=== PATIENT | male | born 1965 | race Caucasian/White ===

== ENCOUNTER 2016-10-23 22:08 | Emergency (ER) | payer SELFPAY ==
--- NOTE | 2016-10-24 03:01 | ED ORDER SUMMARY ---
..... Patient: SUSANA CLAIRE OrderSheet [facility] VisitID: [id number] [place] [address] 51y, M Registration Date/Time: 10/23/2016 ORDER SHEET Weight: 90.7 kg (stated) Allergies: No Known Drug Allergy GENERAL ORDERS: Chest 2V Urgent (23:28 10/23/2016 Robyn R.N. verbal order read back to Malcom LUCIANO) (Ack 23:29 Flakito ER Sheet Metal Superintendent) (1:36 JRomanelli R.N.) EKG - ER Stat (23:40 10/23/2016 Robyn R.N. verbal order read back to Malcom LUCIANO) (Ack 23:53 RKaruga) (0:16 Flakito ER Sheet Metal Superintendent) Shoulder 2V or more Left Urgent (00:22 10/24/2016 Malcom LUCIANO) (Ack 0:26 Flakito ER Sheet Metal Superintendent) (1:36 omanelli R.N.) Ribs Unilat Left Urgent (00:23 10/24/2016 Malcom LUCIANO) (Ack 0:26 Flakito ER Sheet Metal Superintendent) (1:36 omanelli R.N.) MEDICATION ORDERS: Tdap IM 0.5 mL (NOW, per protocol) (23:29 10/23/2016 Robyn R.N. verbal order read back to Malcom LUCIANO) (Ack 0:52 RMarsden R.N.) (1:16 RMarsden R.N.) IV FLUIDS: Dilaudid IV 0.5 mg (HIGH ALERT MEDICATION, NOW) (00:23 10/24/2016 Malcom LUCIANO) (Ack 0:52 RMarsden R.N.) (1:15 RMarsden R.N.) Zofran IV 4 mg (NOW) (00:23 10/24/2016 Malcom LUCIANO) (Ack 0:52 RMarsden R.N.) (1:15 RMarsden R.N.) Dilaudid IV 0.5 mg (HIGH ALERT MEDICATION, NOW) (02:57 10/24/2016 Malcom LUCIANO) (Ack 3:14 RMarsden R.N.) (3:24 RMarsden R.N.) ORDER SHEET NOTES: [Electronically signed by Manisha Dumont R.N. (03:52 10/24/2016)] [Electronically signed by Marino Madison MD (10:29 11/12/2016)] [Electronically locked/signed by Manisha Dumont R.N. (03:52 10/24/2016)]
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
--- NOTE | 2016-10-24 03:01 | ED ORDER SUMMARY ---
..... Patient: SUSANA CLAIRE OrderSheet [facility] VisitID: [id number] [place] [address] 51y, M Registration Date/Time: 10/23/2016 ORDER SHEET Weight: 90.7 kg (stated) Allergies: No Known Drug Allergy GENERAL ORDERS: Chest 2V Urgent (23:28 10/23/2016 Robyn R.N. verbal order read back to Malcom LUCIANO) (Ack 23:29 Flakito ER Caustic Room Attendant) (1:36 JRomanelli R.N.) EKG - ER Stat (23:40 10/23/2016 Robyn R.N. verbal order read back to Malcom LUCIANO) (Ack 23:53 RKaruga) (0:16 Flakito ER Caustic Room Attendant) Shoulder 2V or more Left Urgent (00:22 10/24/2016 Malcom LUCIANO) (Ack 0:26 Flakito ER Caustic Room Attendant) (1:36 omanelli R.N.) Ribs Unilat Left Urgent (00:23 10/24/2016 Malcom LUCIANO) (Ack 0:26 Flakito ER Caustic Room Attendant) (1:36 omanelli R.N.) MEDICATION ORDERS: Tdap IM 0.5 mL (NOW, per protocol) (23:29 10/23/2016 Robyn R.N. verbal order read back to Malcom LUCIANO) (Ack 0:52 RMarsden R.N.) (1:16 RMarsden R.N.) IV FLUIDS: Dilaudid IV 0.5 mg (HIGH ALERT MEDICATION, NOW) (00:23 10/24/2016 Malcom LUCIANO) (Ack 0:52 RMarsden R.N.) (1:15 RMarsden R.N.) Zofran IV 4 mg (NOW) (00:23 10/24/2016 Malcom LUCIANO) (Ack 0:52 RMarsden R.N.) (1:15 RMarsden R.N.) Dilaudid IV 0.5 mg (HIGH ALERT MEDICATION, NOW) (02:57 10/24/2016 Malcom LUCIANO) (Ack 3:14 RMarsden R.N.) (3:24 RMarsden R.N.) ORDER SHEET NOTES: [Electronically signed by Manisha Dumont R.N. (03:52 10/24/2016)] [Electronically signed by Marino Madison MD (10:29 11/12/2016)] [Electronically locked/signed by Manisha Dumont R.N. (03:52 10/24/2016)]
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
--- NOTE | 2016-10-24 08:02 | DIAGNOSTIC IMAGING REPORT ---
PROCEDURE: XR CHEST 2 VIEW INDICATION: CHEST PAIN TECHNIQUE: Two views. COMPARISON: None. FINDINGS: Cardiomediastinal contour and central vessels are normal. Asymmetric left hemidiaphragm elevation. Small to moderate size left pneumothorax. No visible pleural effusion. Minor left lateral lung base atelectatic change. The right lung is clear. There is a remote non-united left mid clavicle fracture with fixation hardware in place. There is acute fracture of the left scapula. Deformity of the left lateral chest wall suggestive of rib fractures. IMPRESSION: 1. Small to moderate size left pneumothorax. 2. Left scapula and left lateral rib fractures. 3. Left lateral lung base atelectasis. 4. Findings discussed with Dr. Madison in the emergency room.
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
--- NOTE | 2016-10-24 08:04 | DIAGNOSTIC IMAGING REPORT ---
PROCEDURE: XR RIBS UNILATERAL - LEFT INDICATION: TECHNIQUE: Two views of the left ribs with single PA view chest. COMPARISON: None. FINDINGS: LEFT RIBS: Deformity of the anterolateral 3rd rib, minimally displaced fourth rib fracture, mildly displaced fifth rib fracture. Displaced sixth and seventh rib fractures with some callus. Acute eighth rib fracture. Questionable ninth rib fracture. CHEST: Left hemidiaphragm elevation. Normal cardiomediastinal contour. Small to moderate left pneumothorax. Remote, fixed left clavicle fracture and acute left scapula fracture. IMPRESSION: 1. Multiple acute left rib fractures. 2. Multiple chronic left rib fractures, healed. 3. Small to moderate left pneumothorax. 4. Discussed with Dr. Madison in the emergency room.
--- NOTE | 2016-11-12 10:29 | ED MAR SUMMARY ---
..... Medication Administration Record [facility] [address] [place] [address] Patient: SUSANA CLAIRE Visit ID: [id number] 51y, M Weight: 90.7 kg Height/Length: 72 in BMI: 27.1 ALLERGIES: No Known Drug Allergy Given 01:07 10/24/2016 Manisha Dumont R.N. Medication Administered: ZOFRAN [IVP] (ONDANSETRON HCL), Dose: 4 mg IVP over 2 minute(s), Site: #1 right wrist. Medication Ordered: Zofran IV 4 mg (NOW). Given 01:10 10/24/2016 Manisha Dumont R.N. Medication Administered: DILAUDID [IVP] (HYDROMORPHONE HCL PF), Dose: 0.5 mg IVP over 1 minute(s), Site: #1 right wrist. Medication Ordered: Dilaudid IV 0.5 mg (HIGH ALERT MEDICATION, NOW). Given 01:16 10/24/2016 Manisha Dumont R.N. Medication Administered: TDAP [IM], Dose: 0.5 mL IM. Medication Ordered: Tdap IM 0.5 mL (NOW, per protocol). Given 03:24 10/24/2016 Manisha Dumont R.N. Medication Administered: DILAUDID [IVP] (HYDROMORPHONE HCL PF), Dose: 0.5 mg IVP over 2 minute(s), Site: #1 right wrist. Medication Ordered: Dilaudid IV 0.5 mg (HIGH ALERT MEDICATION, NOW).
--- NOTE | 2016-11-12 10:29 | ED MED RECONCILIATION SUMMARY ---
Patient: SUSANA CLAIRE Medication Reconciliation Report [facility] VisitID: [id number] [place] [address] 51y, M Registration Date/Time: 10/23/2016 Weight: 90.7 kg Height/Length: 72 in. BMI: 27.1 ALLERGIES: No Known Drug Allergy The patient's Home Medications are listed below: CONTINUE TAKING THE FOLLOWING MEDICATIONS: BusPIRone HCl Oral Citalopram Hydrobromide Oral The source(s) of the original Home Medication information: Not obtained. The following Medications were given to the patient in the Emergency Department: Zofran [IVP] IVP 4 mg, administered: 10/24/2016 1:07:00 AM Dilaudid [IVP] IVP 0.5 mg, administered: 10/24/2016 1:10:00 AM TDAP [IM] IM 0.5 mL, administered: 10/24/2016 1:16:00 AM Dilaudid [IVP] IVP 0.5 mg, administered: 10/24/2016 3:24:00 AM The following Medications were prescribed to the patient: Hydrocodone/APAP 5mg/325mg: take 1 to 2 orally every 6 hours as needed for pain. Dispense fifteen (15). No refills. -- Marino Madison MD
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
--- NOTE | 2016-11-12 10:29 | ED MAR SUMMARY ---
..... Medication Administration Record [facility] [address] [place] [address] Patient: SUSANA CLAIRE Visit ID: [id number] 51y, M Weight: 90.7 kg Height/Length: 72 in BMI: 27.1 ALLERGIES: No Known Drug Allergy Given 01:07 10/24/2016 Manisha Dumont R.N. Medication Administered: ZOFRAN [IVP] (ONDANSETRON HCL), Dose: 4 mg IVP over 2 minute(s), Site: #1 right wrist. Medication Ordered: Zofran IV 4 mg (NOW). Given 01:10 10/24/2016 Manisha Dumont R.N. Medication Administered: DILAUDID [IVP] (HYDROMORPHONE HCL PF), Dose: 0.5 mg IVP over 1 minute(s), Site: #1 right wrist. Medication Ordered: Dilaudid IV 0.5 mg (HIGH ALERT MEDICATION, NOW). Given 01:16 10/24/2016 Manisha Dumont R.N. Medication Administered: TDAP [IM], Dose: 0.5 mL IM. Medication Ordered: Tdap IM 0.5 mL (NOW, per protocol). Given 03:24 10/24/2016 Manisha Dumont R.N. Medication Administered: DILAUDID [IVP] (HYDROMORPHONE HCL PF), Dose: 0.5 mg IVP over 2 minute(s), Site: #1 right wrist. Medication Ordered: Dilaudid IV 0.5 mg (HIGH ALERT MEDICATION, NOW).
--- NOTE | 2016-11-12 10:29 | ED MED RECONCILIATION SUMMARY ---
Patient: SUSANA CLAIRE Medication Reconciliation Report [facility] VisitID: [id number] [place] [address] 51y, M Registration Date/Time: 10/23/2016 Weight: 90.7 kg Height/Length: 72 in. BMI: 27.1 ALLERGIES: No Known Drug Allergy The patient's Home Medications are listed below: CONTINUE TAKING THE FOLLOWING MEDICATIONS: BusPIRone HCl Oral Citalopram Hydrobromide Oral The source(s) of the original Home Medication information: Not obtained. The following Medications were given to the patient in the Emergency Department: Zofran [IVP] IVP 4 mg, administered: 10/24/2016 1:07:00 AM Dilaudid [IVP] IVP 0.5 mg, administered: 10/24/2016 1:10:00 AM TDAP [IM] IM 0.5 mL, administered: 10/24/2016 1:16:00 AM Dilaudid [IVP] IVP 0.5 mg, administered: 10/24/2016 3:24:00 AM The following Medications were prescribed to the patient: Hydrocodone/APAP 5mg/325mg: take 1 to 2 orally every 6 hours as needed for pain. Dispense fifteen (15). No refills. -- Marino Madison MD
== END 2016-10-24 03:38 | disposition home or self-care (01) ==
LOC: ED SRH 22:08
DX: S22.42XA Multiple fractures of ribs, left side, initial encounter for closed fracture (principal); S27.0XXA Traumatic pneumothorax, initial encounter; S42.102A Fracture of unspecified part of scapula, left shoulder, initial encounter for closed fracture; S43.422A Sprain of left rotator cuff capsule, initial encounter; S20.212A Contusion of left front wall of thorax, initial encounter; S30.1XXA Contusion of abdominal wall, initial encounter; S80.11XA Contusion of right lower leg, initial encounter; S40.012A Contusion of left shoulder, initial encounter; S90.02XA Contusion of left ankle, initial encounter; V28.0XXA Motorcycle driver injured in noncollision transport accident in nontraffic accident, initial encounter; Y93.I9 Activity, other involving external motion; Z23 Encounter for immunization

== ENCOUNTER 2016-10-24 10:27 | Emergency (ER) | payer SELFPAY ==
--- NOTE | 2016-10-24 11:56 | DIAGNOSTIC IMAGING REPORT ---
PROCEDURE: XR CHEST 2 VIEW INDICATION: SHORTNESS OF BREATH TECHNIQUE: Two views. COMPARISON: 10/23/2016 FINDINGS: Stable cardiomediastinal contour and central vessels. There has been further elevation of the left hemidiaphragm and development of retrocardiac atelectasis. Moderate size pneumothorax is fairly stable. Multiple acute and chronic left-sided rib fractures. Acute, comminuted left scapular fracture. Non-united left clavicle fracture with fixation plate. IMPRESSION: 1. Decreased volume of the left hemithorax secondary to progression of left base atelectasis. 2. Moderate left pneumothorax is stable. 3. Acute left scapula fracture.
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
--- NOTE | 2016-10-24 14:32 | ED ORDER SUMMARY ---
..... Patient: SUSANA CLAIRE OrderSheet [facility] VisitID: [id number] [address] [place] [address] 51y, M Registration Date/Time: 10/24/2016 ORDER SHEET Weight: 90.7 kg Allergies: No Known Drug Allergy GENERAL ORDERS: CT Upp Ext wo Cont Left (Shoulder) Urgent (10:41 10/24/2016 Preethi LUCIANO) (Ack 10:43 PWeiler ER Tech1) (11:35 PWeiler ER Tech1) Chest 2V Urgent (10:42 10/24/2016 Preethi LUCIANO) (Ack 10:43 PWeiler ER Tech1) (11:35 PWeiler ER Tech1) CBC w Diff Urgent (10:42 10/24/2016 Preethi LUCIANO) (Ack 10:43 PWeiler ER Tech1) (11:10 JBoardley R.N.) CMP Urgent (10:42 10/24/2016 Preethi LUCIANO) (Ack 10:43 PWeiler ER Tech1) (11:10 JBoardley R.N.) Clinical Quality Assurance Specialist (Continuous) (10:43 10/24/2016 rPeethi LUCIANO) (10:45 JBoardley R.N.) Oxygen (100%) (Non-Rebreather Mask) (10:43 10/24/2016 Preethi LUCIANO) (10:45 JBoardley R.N.) Pulse oximeter (10:44 10/24/2016 Preethi LUCIANO) (10:45 JBoardley R.N.) Shoulder Immobilizer (13:27 10/24/2016 Preethi LUCIANO) (13:36 JBoardley R.N.) MEDICATION ORDERS: IV FLUIDS: Dilaudid IV 1 mg (HIGH ALERT MEDICATION, NOW) (10:39 10/24/2016 Preethi LUCIANO) (Ack 10:45 JBoardley R.N.) (11:11 JBoardley R.N.) Toradol IV 30 mg (NOW) (10:39 10/24/2016 Preethi LUCIANO) (Ack 10:45 JBoardley R.N.) (11:11 JBoardley R.N.) IV Saline Lock (10:42 10/24/2016 Preethi LUCIANO) (Ack 10:45 JBoardley R.N.) (11:10 JBoardley R.N.) Zofran IV 4 mg (NOW) (11:11 10/24/2016 JBoardley R.N. per protocol) (11:11 JBoardley R.N.) Dilaudid IV 1 mg (HIGH ALERT MEDICATION, NOW) (12:03 10/24/2016 JBoardley R.N. verbal order read back to Preethi LUCIANO) (12:04 JBoardley R.N.) Dilaudid IV 1 mg (HIGH ALERT MEDICATION, NOW) (14:01 10/24/2016 Preethi LUCIANO) (Ack 14:02 Tarsha R.N.) (Ack 14:06 JBoarsukumar R.N.) (14:14 JBoardley R.N.) ORDER SHEET NOTES: [Electronically signed by Guido Sinha R.N. (17:12 10/24/2016)] [Electronically signed by Kayla Kim MD (09:58 10/30/2016)] [Electronically locked/signed by Guido Sinha R.N. (17:12 10/24/2016)]
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
--- NOTE | 2016-10-24 14:32 | ED ORDER SUMMARY ---
..... Patient: SUSANA CLAIRE OrderSheet [facility] VisitID: [id number] [address] [place] [address] 51y, M Registration Date/Time: 10/24/2016 ORDER SHEET Weight: 90.7 kg Allergies: No Known Drug Allergy GENERAL ORDERS: CT Upp Ext wo Cont Left (Shoulder) Urgent (10:41 10/24/2016 Preethi LUCIANO) (Ack 10:43 PWeiler ER Tech1) (11:35 PWeiler ER Tech1) Chest 2V Urgent (10:42 10/24/2016 Preethi LUCIANO) (Ack 10:43 PWeiler ER Tech1) (11:35 PWeiler ER Tech1) CBC w Diff Urgent (10:42 10/24/2016 Preethi LUCIANO) (Ack 10:43 PWeiler ER Tech1) (11:10 JBoardley R.N.) CMP Urgent (10:42 10/24/2016 Preethi LUCIANO) (Ack 10:43 PWeiler ER Tech1) (11:10 JBoardley R.N.) Checker (Continuous) (10:43 10/24/2016 Preethi LUCIANO) (10:45 JBoardley R.N.) Oxygen (100%) (Non-Rebreather Mask) (10:43 10/24/2016 Preethi LUCIANO) (10:45 JBoardley R.N.) Pulse oximeter (10:44 10/24/2016 Preethi LUCIANO) (10:45 JBoardley R.N.) Shoulder Immobilizer (13:27 10/24/2016 Preethi LUCIANO) (13:36 JBoardley R.N.) MEDICATION ORDERS: IV FLUIDS: Dilaudid IV 1 mg (HIGH ALERT MEDICATION, NOW) (10:39 10/24/2016 Preethi LUCIANO) (Ack 10:45 JBoardley R.N.) (11:11 JBoardley R.N.) Toradol IV 30 mg (NOW) (10:39 10/24/2016 Preethi LUCIANO) (Ack 10:45 JBoardley R.N.) (11:11 JBoardley R.N.) IV Saline Lock (10:42 10/24/2016 Preethi LUCIANO) (Ack 10:45 JBoardley R.N.) (11:10 JBoardley R.N.) Zofran IV 4 mg (NOW) (11:11 10/24/2016 JBoardley R.N. per protocol) (11:11 JBoardley R.N.) Dilaudid IV 1 mg (HIGH ALERT MEDICATION, NOW) (12:03 10/24/2016 JBoardley R.N. verbal order read back to Preethi LUCIANO) (12:04 JBoardley R.N.) Dilaudid IV 1 mg (HIGH ALERT MEDICATION, NOW) (14:01 10/24/2016 Preethi LUCIANO) (Ack 14:02 Tarsha R.N.) (Ack 14:06 JBoarsukumar R.N.) (14:14 JBoardley R.N.) ORDER SHEET NOTES: [Electronically signed by Guido Sinha R.N. (17:12 10/24/2016)] [Electronically signed by Kayla Kim MD (09:58 10/30/2016)] [Electronically locked/signed by Guido Sinha R.N. (17:12 10/24/2016)]
--- NOTE | 2016-10-30 09:58 | ED MED RECONCILIATION SUMMARY ---
Patient: SUSANA CLAIRE Medication Reconciliation Report [facility] VisitID: [id number] [address] [place] [address] 51y, M Registration Date/Time: 10/24/2016 Weight: 90.7 kg Height/Length: 72 in. BMI: 27.1 ALLERGIES: No Known Drug Allergy The patient's Home Medications are listed below: CONTINUE TAKING THE FOLLOWING MEDICATIONS: BusPIRone HCl Oral Citalopram Hydrobromide Oral The source(s) of the original Home Medication information: patient The following Medications were given to the patient in the Emergency Department: Dilaudid [IVP] IVP 1 mg, administered: 10/24/2016 11:06:00 AM Toradol [IVP] IVP 30 mg, administered: 10/24/2016 11:11:00 AM Zofran [IVP] IVP 4 mg, administered: 10/24/2016 11:11:00 AM Dilaudid [IVP] IVP 1 mg, administered: 10/24/2016 12:04:00 PM Dilaudid [IVP] IVP 1 mg, administered: 10/24/2016 2:14:00 PM The following Medications were prescribed to the patient: Zofran (orally disintegrating tablets) 4 mg: take 1-2 orally every 6 hours as needed for nausea. Dispense fifteen (15). No refill. Substitution is permissible. -- Kayla Kim MD Percocet 5 mg/325 mg: take 1-2 tablets orally every 4 hours as needed for pain. Dispense thirty (30). One refill. Substitution is permissible. -- Kayla Kim MD
--- NOTE | 2016-10-30 09:58 | ED DISCHARGE INSTRUCTIONS ---
Patient: SUSANA CLAIRE General Instructions [facility] VisitID: [id number] [address] [place] [address] 51y, M Registration Date/Time: 10/24/2016 Left traumatic pneumothorax. No respiratory distress, hypotension or hemothorax. Closed displaced body fracture of the left scapula. Single left rib fracture. INSTRUCTIONS Do not work (until Monday, 10/31; may perform any duty that does not involve lifting or reaching with the left arm, until cleared by orthopedics.). (Your case has been discussed with the surgeon on-call, Dr. Hunter. He has requested that,as it has been about 18 hours since your accident, you be discharged home with concentrated oxygen to help your pneumothorax resolve. He would like you to come back to the emergency department in the morning for a repeat chest x-ray. Please wear the shoulder immobilizer for the next several weeks, and follow-up with the education program specialist as directed. If you have any increase in shortness of breath overnight, you should return to the Emergency Department without delay.). Warnings: SEDATIVE MEDICATION: You were given sedative medication during your visit. Do not drive or operate dangerous machinery for 6 hours. GENERAL WARNINGS: Return or contact your physician immediately if your condition worsens or changes unexpectedly, if not improving as expected, or if other problems arise. Your Current Medications: CONTINUE TAKING THE FOLLOWING MEDICATIONS: BusPIRone HCl Oral. Citalopram Hydrobromide Oral. Prescription Medications: Zofran (orally disintegrating tablets) 4 mg: take 1-2 orally every 6 hours as needed for nausea. Dispense fifteen (15). No refill. Substitution is permissible. Percocet 5 mg/325 mg: take 1-2 tablets orally every 4 hours as needed for pain. Dispense thirty (30). One refill. Substitution is permissible. Follow-up: Follow up with doctor Please return to the emergency department tomorrow morning for a repeat chest x-ray. Understanding of the discharge instructions verbalized by patient. Follow-up with: [facility], , [address], [place], [id number] Follow up in two weeks. Reason for referral: Follow up L scapular fracture. ADDITIONAL INFORMATION Pneumothorax, Traumatic [Blunt Trauma] PNEUMOTHORAX means an injury which causes a partial collapse of one lung. Air that leaks out of the lung is trapped in the space between the lung and the chest wall (pleural space). This trapped air prevents the lung from re-inflating. This can occur as a result of blunt injury to the chest such as a fall or car accident with or without a broken rib. A small pneumothorax caused by blunt trauma can be treated at home. The trapped air will be absorbed and the lung will re-expand by itself. Larger amounts of trapped air must be treated in the hospital. Home Care: 1) Rest at home. No strenuous activity for the next week. 2) You may use acetaminophen (Tylenol) or ibuprofen (Motrin, Advil) to control pain, unless another medicine was prescribed. [ NOTE : If you have chronic liver or kidney disease or ever had a stomach ulcer or GI bleeding, talk with your doctor before using these medicines.] 3) Although your chest might hurt to breathe, during the next three days, it is important to take four slow deep breaths every one to two hours while awake. This sends extra oxygen and blood to the lung and is important to help keep the lung expanded. If an incentive spirometer (breathing exercise device) was given, use it as directed. Follow Up with your doctor or this facility as directed for a repeat chest X-ray to be sure the pneumothorax is going away and not getting larger. [NOTE: Any X-rays taken will be reviewed by a radiologist. You will be notified of any new findings that may affect your care.] Get Prompt Medical Attention if any of the following occur: -- Shortness of breath -- Breathing becomes more painful -- Weakness, dizziness or fainting Shoulder Fracture [Shoulder Immobilizer] You have a break (fracture) of the shoulder. This may be a small crack in the bone. Or it may be a major break with the broken parts pushed out of position. If there is only a crack in the bone and no bone fragments are out of place, a shoulder fracture is usually treated with a shoulder immobilizer. This is a special type of sling. (Casts are not used for this type of fracture.) Healing of the bone usually occurs in 4-6 weeks. More serious injuries may require surgery to put the bones back into the correct position for healing. Home Care: Leave the shoulder immobilizer in place. This will support the injured arm at your side. This is the best position for bone healing. The shoulder immobilizer is adjustable. If it becomes loose, adjust it so that your forearm is horizontal (level with the ground). Your hand should be level with the elbow. Apply an ice pack (ice cubes in a plastic bag, wrapped in a towel) over the injured area for 20 minutes every 1-2 hours the first day. Continue with ice packs 3-4 times a day for the next two days, then as needed for the relief of pain and swelling. You may use acetaminophen (Tylenol) or ibuprofen (Motrin, Advil) to control pain, unless another pain medicine was prescribed. (NOTE : If you have chronic liver or kidney disease or ever had a stomach ulcer or GI bleeding, talk with your doctor before using these medicines.) Do not remove the sling before your next exam unless you were instructed to do so. Follow Up with your doctor in one week, or as advised by our staff, to be sure the bone is healing properly. A shoulder joint will become stiff if left in a sling for too long. Ask your doctor when it is safe to begin [id number] exercises. Get Prompt Medical Attention if any of the following occur: Fingers become swollen, cold, blue, numb or tingly Large amount of swelling or bruising of the shoulder or upper arm Increasing shoulder pain or arm swelling Rib Fracture You have a fracture (break) of one or more ribs. Rib fractures do not require a cast like other bones. They will heal by themselves in about 4-6 weeks. The first 3-4 weeks will be the most painful because deep breathing, coughing or changing position from sitting to lying down, may cause the broken ends to move slightly. Home Care: Rest. You should not be doing any heavy lifting or strenuous exertion until the pain goes away. Because it hurts to breathe when you have a broken rib, there is risk of getting pneumonia from poor airflow through your lungs. To prevent this: Take four very deep breaths at least four times a day (exhale through pursed lips as if you are blowing up a balloon). If an "incentive spirometer" (breathing exercise device) was given to you, use it at least four times a day, or as directed. Apply an ice pack (ice cubes in a plastic bag, wrapped in a towel) over the injured area for 20 minutes every 1-2 hours the first day. Continue with ice packs 3-4 times a day for the next two days, then as needed for the relief of pain and swelling. You may use acetaminophen (Tylenol) or ibuprofen (Motrin, Advil) to control pain, unless another pain medicine was prescribed. [NOTE: If you have chronic liver or kidney disease or ever had a stomach ulcer or GI bleeding, talk with your doctor before using these medicines.] If your pain is not controlled by the treatment given, contact your doctor. Sometimes a stronger pain medicine may be needed. A nerve block (numbing the nerve between the ribs) can be performed in case of severe pain. Follow Up with your doctor during the next week, or as advised. Rarely, a broken rib will cause complications within the first few days that may not be evident during your initial exam (such as, collapsed lung, bleeding around the lung or into the abdomen, or pneumonia). Therefore, watch for the signs below. [NOTE: If x-rays were taken, they will be reviewed by a radiologist. You will be notified of any new findings that may affect your care.] Get Prompt Medical Attention if any of the following occur: Shortness of breath Increasing chest pain with breathing Dizziness, weakness or fainting New or worsening abdominal pain Fever of 100.4F (38C) or higher, or as directed by your healthcare provider Congested cough You have been given the following additional information: Pneumothorax, Blunt Trauma Fracture, Shoulder Fracture, Rib Do not work (until Monday, 10/31; may perform any duty that does not involve lifting or reaching with the left arm, until cleared by orthopedics.). (Electronically signed by Kayla Kim MD 10/30/2016 9:58)
--- NOTE | 2016-10-30 09:58 | ED MAR SUMMARY ---
..... Medication Administration Record [facility] [address] [place] [address] Patient: SUSANA CLAIRE Visit ID: [id number] 51y, M Weight: 90.7 kg Height/Length: 72 in BMI: 27.1 ALLERGIES: No Known Drug Allergy Given 11:06 10/24/2016 Guido Sinha R.N. Medication Administered: DILAUDID [IVP] (HYDROMORPHONE HCL PF), Dose: 1 mg IVP over 2 minute(s), Site: #1 right forearm. Medication Ordered: Dilaudid IV 1 mg (HIGH ALERT MEDICATION, NOW). Given 11:11 10/24/2016 Guido Sinha R.N. Medication Administered: TORADOL [IVP], Dose: 30 mg IVP over 2 minute(s), Site: #1 right forearm. Medication Ordered: Toradol IV 30 mg (NOW). Given 11:11 10/24/2016 Giudo Sinha R.N. Medication Administered: ZOFRAN [IVP] (ONDANSETRON HCL), Dose: 4 mg IVP over 2 minute(s), Site: #1 right forearm. Medication Ordered: Zofran IV 4 mg (NOW). Given 12:04 10/24/2016 Guido Sinha R.N. Medication Administered: DILAUDID [IVP] (HYDROMORPHONE HCL PF), Dose: 1 mg IVP over 2 minute(s), Site: #1 right forearm. Medication Ordered: Dilaudid IV 1 mg (HIGH ALERT MEDICATION, NOW). Given 14:14 10/24/2016 Guido Sinha R.N. Medication Administered: DILAUDID [IVP] (HYDROMORPHONE HCL PF), Dose: 1 mg IVP over 2 minute(s), Site: #1 right forearm. Medication Ordered: Dilaudid IV 1 mg (HIGH ALERT MEDICATION, NOW).
--- NOTE | 2016-10-30 09:58 | ED MAR SUMMARY ---
..... Medication Administration Record [facility] [address] [place] [address] Patient: SUSANA CLAIRE Visit ID: [id number] 51y, M Weight: 90.7 kg Height/Length: 72 in BMI: 27.1 ALLERGIES: No Known Drug Allergy Given 11:06 10/24/2016 Guido Sinha R.N. Medication Administered: DILAUDID [IVP] (HYDROMORPHONE HCL PF), Dose: 1 mg IVP over 2 minute(s), Site: #1 right forearm. Medication Ordered: Dilaudid IV 1 mg (HIGH ALERT MEDICATION, NOW). Given 11:11 10/24/2016 Guido Sinha R.N. Medication Administered: TORADOL [IVP], Dose: 30 mg IVP over 2 minute(s), Site: #1 right forearm. Medication Ordered: Toradol IV 30 mg (NOW). Given 11:11 10/24/2016 Guido Sinha R.N. Medication Administered: ZOFRAN [IVP] (ONDANSETRON HCL), Dose: 4 mg IVP over 2 minute(s), Site: #1 right forearm. Medication Ordered: Zofran IV 4 mg (NOW). Given 12:04 10/24/2016 Guido Sinha R.N. Medication Administered: DILAUDID [IVP] (HYDROMORPHONE HCL PF), Dose: 1 mg IVP over 2 minute(s), Site: #1 right forearm. Medication Ordered: Dilaudid IV 1 mg (HIGH ALERT MEDICATION, NOW). Given 14:14 10/24/2016 Guido Sinha R.N. Medication Administered: DILAUDID [IVP] (HYDROMORPHONE HCL PF), Dose: 1 mg IVP over 2 minute(s), Site: #1 right forearm. Medication Ordered: Dilaudid IV 1 mg (HIGH ALERT MEDICATION, NOW).
--- NOTE | 2016-10-30 09:58 | ED MED RECONCILIATION SUMMARY ---
Patient: SUSANA CLAIRE Medication Reconciliation Report [facility] VisitID: [id number] [address] [place] [address] 51y, M Registration Date/Time: 10/24/2016 Weight: 90.7 kg Height/Length: 72 in. BMI: 27.1 ALLERGIES: No Known Drug Allergy The patient's Home Medications are listed below: CONTINUE TAKING THE FOLLOWING MEDICATIONS: BusPIRone HCl Oral Citalopram Hydrobromide Oral The source(s) of the original Home Medication information: patient The following Medications were given to the patient in the Emergency Department: Dilaudid [IVP] IVP 1 mg, administered: 10/24/2016 11:06:00 AM Toradol [IVP] IVP 30 mg, administered: 10/24/2016 11:11:00 AM Zofran [IVP] IVP 4 mg, administered: 10/24/2016 11:11:00 AM Dilaudid [IVP] IVP 1 mg, administered: 10/24/2016 12:04:00 PM Dilaudid [IVP] IVP 1 mg, administered: 10/24/2016 2:14:00 PM The following Medications were prescribed to the patient: Zofran (orally disintegrating tablets) 4 mg: take 1-2 orally every 6 hours as needed for nausea. Dispense fifteen (15). No refill. Substitution is permissible. -- Kayla Kim MD Percocet 5 mg/325 mg: take 1-2 tablets orally every 4 hours as needed for pain. Dispense thirty (30). One refill. Substitution is permissible. -- Kayla Kim MD
== END 2016-10-24 17:10 | disposition home or self-care (01) ==
LOC: ED SRH 10:27
DX: S27.0XXA Traumatic pneumothorax, initial encounter (principal); S42.112A Displaced fracture of body of scapula, left shoulder, initial encounter for closed fracture; S22.32XD Fracture of one rib, left side, subsequent encounter for fracture with routine healing; V28.0XXA Motorcycle driver injured in noncollision transport accident in nontraffic accident, initial encounter; Y93.89 Activity, other specified; Y99.8 Other external cause status; Y92.410 Unspecified street and highway as the place of occurrence of the external cause

== ENCOUNTER 2016-10-25 08:03 | Emergency (ER) | payer SELFPAY ==
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
--- NOTE | 2016-10-25 08:54 | ED ORDER SUMMARY ---
..... Patient: SUSANA CLAIRE OrderSheet [facility] VisitID: [id number] [address] [place] [address] 51y, M Registration Date/Time: 10/25/2016 ORDER SHEET Weight: 90.7 kg (stated) Allergies: No Known Drug Allergy GENERAL ORDERS: Chest 2V Urgent (08:17 10/25/2016 Radha Alarcon) (8:22 LWhalen R.N.) Oxygen (10 L/min) (Non-Rebreather Mask) (08:18 10/25/2016 Radha Alarcon) (8:22 LWhalen R.N.) Pulse oximeter (08:18 10/25/2016 Radha Alarcon) (8:22 LWhalen R.N.) MEDICATION ORDERS: IV FLUIDS: ORDER SHEET NOTES: [Electronically signed by Steve Ruiz R.N. (11:48 10/25/2016)] [Electronically signed by Lalo Herron Dr. (06:39 10/28/2016)] [Electronically locked/signed by Steve Ruiz R.N. (11:48 10/25/2016)]
--- NOTE | 2016-10-25 08:54 | ED ORDER SUMMARY ---
..... Patient: SUSANA CLAIRE OrderSheet [facility] VisitID: [id number] [address] [place] [address] 51y, M Registration Date/Time: 10/25/2016 ORDER SHEET Weight: 90.7 kg (stated) Allergies: No Known Drug Allergy GENERAL ORDERS: Chest 2V Urgent (08:17 10/25/2016 Radha Alarcon) (8:22 LWhalen R.N.) Oxygen (10 L/min) (Non-Rebreather Mask) (08:18 10/25/2016 Radha Alarcon) (8:22 LWhalen R.N.) Pulse oximeter (08:18 10/25/2016 Radha Alarcon) (8:22 LWhalen R.N.) MEDICATION ORDERS: IV FLUIDS: ORDER SHEET NOTES: [Electronically signed by Steve Ruiz R.N. (11:48 10/25/2016)] [Electronically signed by Lalo Herron Dr. (06:39 10/28/2016)] [Electronically locked/signed by Steve Ruiz R.N. (11:48 10/25/2016)]
--- NOTE | 2016-10-28 06:39 | ED MAR SUMMARY ---
..... Medication Administration Record [facility] [address], [place] [id number] Patient: SUSANA CLAIRE Visit ID: [id number] 51y, M Weight: 90.7 kg Height/Length: 72 in BMI: 27.1 ALLERGIES: No Known Drug Allergy
--- NOTE | 2016-10-28 06:39 | ED MED RECONCILIATION SUMMARY ---
Patient: SUSANA CLAIRE Medication Reconciliation Report [facility] VisitID: [id number] [address] [place] [address] 51y, M Registration Date/Time: 10/25/2016 Weight: 90.7 kg Height/Length: 72 in. BMI: 27.1 ALLERGIES: No Known Drug Allergy The patient's Home Medications are listed below: CONTINUE TAKING THE FOLLOWING MEDICATIONS: BusPIRone HCl Oral Citalopram Hydrobromide Oral The source(s) of the original Home Medication information: Not obtained. The following Medications were given to the patient in the Emergency Department: None. The following Medications were prescribed to the patient: Percocet 5 mg/325 mg: take 1 tablet orally every 6 hours as needed for pain. Dispense twelve (12). No refill. Substitution is permissible. -- Lalo Herron Dr.
--- NOTE | 2016-10-28 06:39 | ED MAR SUMMARY ---
..... Medication Administration Record [facility] [address], [place] [id number] Patient: SUSANA CLAIRE Visit ID: [id number] 51y, M Weight: 90.7 kg Height/Length: 72 in BMI: 27.1 ALLERGIES: No Known Drug Allergy
--- NOTE | 2016-10-28 06:39 | ED DISCHARGE INSTRUCTIONS ---
Patient: SUSANA CLAIRE General Instructions [facility] VisitID: [id number] [address] [place] [address] 51y, M Registration Date/Time: 10/25/2016 10/25/2016 08:09 BP: 119/79. HR: 97. RR: 18. O2 saturation: 100%. Temp: 99.3 F. Blood pressure normal. Oxygen saturation normal. Left traumatic pneumothorax (improved, subsequent encounter). INSTRUCTIONS Warnings: GENERAL WARNINGS: Return or contact your physician immediately if your condition worsens or changes unexpectedly, if not improving as expected, or if other problems arise. Specifically return if pain, vomiting, bleeding, breathing difficulty or fever. Your Current Medications: CONTINUE TAKING THE FOLLOWING MEDICATIONS: BusPIRone HCl Oral. Citalopram Hydrobromide Oral. Prescription Medications: Percocet 5 mg/325 mg: take 1 tablet orally every 6 hours as needed for pain. Dispense twelve (12). No refill. Substitution is permissible. Follow-up: Return to the emergency department as needed. Follow up with your doctor in three days. Reason for referral: recheck today's concerns. Summary of care provided to patient via paper. Screening today revealed the patient's blood pressure to be in the normal range. The patient should follow up with a primary care provider for blood pressure management. Understanding of the discharge instructions verbalized by patient. ADDITIONAL INFORMATION Pneumothorax, Traumatic [Blunt Trauma] PNEUMOTHORAX means an injury which causes a partial collapse of one lung. Air that leaks out of the lung is trapped in the space between the lung and the chest wall (pleural space). This trapped air prevents the lung from re-inflating. This can occur as a result of blunt injury to the chest such as a fall or car accident with or without a broken rib. A small pneumothorax caused by blunt trauma can be treated at home. The trapped air will be absorbed and the lung will re-expand by itself. Larger amounts of trapped air must be treated in the hospital. Home Care: 1) Rest at home. No strenuous activity for the next week. 2) You may use acetaminophen (Tylenol) or ibuprofen (Motrin, Advil) to control pain, unless another medicine was prescribed. [ NOTE : If you have chronic liver or kidney disease or ever had a stomach ulcer or GI bleeding, talk with your doctor before using these medicines.] 3) Although your chest might hurt to breathe, during the next three days, it is important to take four slow deep breaths every one to two hours while awake. This sends extra oxygen and blood to the lung and is important to help keep the lung expanded. If an incentive spirometer (breathing exercise device) was given, use it as directed. Follow Up with your doctor or this facility as directed for a repeat chest X-ray to be sure the pneumothorax is going away and not getting larger. [NOTE: Any X-rays taken will be reviewed by a radiologist. You will be notified of any new findings that may affect your care.] Get Prompt Medical Attention if any of the following occur: -- Shortness of breath -- Breathing becomes more painful -- Weakness, dizziness or fainting Oxycodone Hydrochloride, Acetaminophen Oral tablet What is this medicine? ACETAMINOPHEN; OXYCODONE (a set a JAZZY toña fen; ox i KOE done) is a pain reliever. It is used to treat mild to moderate pain. How should I use this medicine? Take this medicine by mouth with a full glass of water. Follow the directions on the prescription label. Take your medicine at regular intervals. Do not take your medicine more often than directed. Talk to your streetcar starter regarding the use of this medicine in children. Special care may be needed. Patients over 65 years old may have a stronger reaction and need a smaller dose. What side effects may I notice from receiving this medicine? Side effects that you should report to your doctor or health client care specialist as soon as possible: allergic reactions like skin rash, itching or hives, swelling of the face, lips, or tongue breathing difficulties, wheezing confusion light headedness or fainting spells severe stomach pain yellowing of the skin or the whites of the eyes Side effects that usually do not require medical attention (report to your doctor or health client care specialist if they continue or are bothersome): dizziness drowsiness nausea vomiting What may interact with this medicine? alcohol antihistamines barbiturates like amobarbital, butalbital, butabarbital, methohexital, pentobarbital, phenobarbital, thiopental, and secobarbital benztropine drugs for bladder problems like solifenacin, trospium, oxybutynin, tolterodine, hyoscyamine, and methscopolamine drugs for breathing problems like ipratropium and tiotropium drugs for certain stomach or intestine problems like propantheline, homatropine methylbromide, glycopyrrolate, atropine, belladonna, and dicyclomine general anesthetics like etomidate, ketamine, nitrous oxide, propofol, desflurane, enflurane, halothane, isoflurane, and sevoflurane medicines for depression, anxiety, or psychotic disturbances medicines for sleep muscle relaxants naltrexone narcotic medicines (opiates) for pain phenothiazines like perphenazine, thioridazine, chlorpromazine, mesoridazine, fluphenazine, prochlorperazine, promazine, and trifluoperazine scopolamine tramadol trihexyphenidyl What if I miss a dose? If you miss a dose, take it as soon as you can. If it is almost time for your next dose, take only that dose. Do not take double or extra doses. Where should I keep my medicine? Keep out of the reach of children. This medicine can be abused. Keep your medicine in a safe place to protect it from theft. Do not share this medicine with anyone. Selling or giving away this medicine is dangerous and against the law. Store at room temperature between 20 and 25 degrees C (68 and 77 degrees F). Keep container tightly closed. Protect from light. This medicine may cause accidental overdose and if it is taken by other adults, children, or pets. Flush any unused medicine down the toilet to reduce the chance of harm. Do not use the medicine after the expiration date. What should I tell my health care provider before I take this medicine? They need to know if you have any of these conditions: brain tumor Crohn's disease, inflammatory bowel disease, or ulcerative colitis drink more than 3 alcohol containing drinks per day drug abuse or addiction head injury heart or circulation problems kidney disease or problems going to the bathroom liver disease lung disease, asthma, or breathing problems an unusual or allergic reaction to acetaminophen, oxycodone, other opioid analgesics, other medicines, foods, dyes, or preservatives or trying to get breast-feeding What should I watch for while using this medicine? Tell your doctor or health client care specialist if your pain does not go away, if it gets worse, or if you have new or a different type of pain. You may develop tolerance to the medicine. Tolerance means that you will need a higher dose of the medication for pain relief. Tolerance is normal and is expected if you take this medicine for a long time. Do not suddenly stop taking your medicine because you may develop a severe reaction. Your body becomes used to the medicine. This does NOT mean you are addicted. Addiction is a behavior related to getting and using a drug for a non-medical reason. If you have pain, you have a medical reason to take pain medicine. Your doctor will tell you how much medicine to take. If your doctor wants you to stop the medicine, the dose will be slowly lowered over time to avoid any side effects. You may get drowsy or dizzy. Do not drive, use machinery, or do anything that needs mental alertness until you know how this medicine affects you. Do not stand or sit up quickly, especially if you are an older patient. This reduces the risk of dizzy or fainting spells. Alcohol may interfere with the effect of this medicine. Avoid alcoholic drinks. There are different types of narcotic medicines (opiates) for pain. If you take more than one type at the same time, you may have more side effects. Give your health care provider a list of all medicines you use. Your doctor will tell you how much medicine to take. Do not take more medicine than directed. Call emergency for help if you have problems breathing. The medicine will cause constipation. Try to have a bowel movement at least every 2 to 3 days. If you do not have a bowel movement for 3 days, call your doctor or health client care specialist. Do not take Tylenol (acetaminophen) or medicines that have acetaminophen with this medicine. Too much acetaminophen can be very dangerous. Many nonprescription medicines contain acetaminophen. Always read the labels carefully to avoid taking more acetaminophen. You have been given the following additional information: Pneumothorax, Blunt Trauma Oxycodone Hydrochloride, Acetaminophen Oral tablet (Electronically signed by Lalo Herron Dr. 10/28/2016 6:39)
--- NOTE | 2016-10-28 06:39 | ED MED RECONCILIATION SUMMARY ---
Patient: SUSANA CLAIRE Medication Reconciliation Report [facility] VisitID: [id number] [address] [place] [address] 51y, M Registration Date/Time: 10/25/2016 Weight: 90.7 kg Height/Length: 72 in. BMI: 27.1 ALLERGIES: No Known Drug Allergy The patient's Home Medications are listed below: CONTINUE TAKING THE FOLLOWING MEDICATIONS: BusPIRone HCl Oral Citalopram Hydrobromide Oral The source(s) of the original Home Medication information: Not obtained. The following Medications were given to the patient in the Emergency Department: None. The following Medications were prescribed to the patient: Percocet 5 mg/325 mg: take 1 tablet orally every 6 hours as needed for pain. Dispense twelve (12). No refill. Substitution is permissible. -- Lalo Herron Dr.
== END 2016-10-25 09:55 | disposition home or self-care (01) ==
LOC: ED SRH 08:03
DX: S27.0XXD Traumatic pneumothorax, subsequent encounter (principal); X58.XXXD Exposure to other specified factors, subsequent encounter; Z79.899 Other long term (current) drug therapy